=== PATIENT | female | born 1950 | race Caucasian/White ===

== ENCOUNTER 2019-08-05 14:40 | Outpatient (CLI) | payer OTHER, SELFPAY ==
--- NOTE | 2019-08-05 15:03 | ECHO_ITS ---
Patient Info Name: Marita Elkins Age: 69 years : 1950 Gender: Female Ht: 68 in Wt: 112 lbs BSA: 1.55 m2 HR: 62 bpm BP: 90 / 74 mmHg Heart Rhythm: Sinus Rhythm Technical Quality: Good Exam Date: 08/05/2019 3:10 PM Exam Location: [facility] Patient Status: Outpatient Admit Date: 08/05/2019 Staff Ordering Physician: Khadijah Mistry MD Clinical Secretary: Avery Estrada RDCS Attending Provider: Khadijah Mistry MD Referring Physician: Fidelia MOELLER; Exam Type: CA echo doppler color flow Study Info Indications I27.2 - Other secondary pulmonary hypertension Complete two-dimensional, color flow and Doppler transthoracic echocardiogram is performed. History/Risk Factors Pulmonary hypertension. Summary 1. Left ventricular chamber dimension is normal. 2. D- shape LV septum during systole suggests right ventricular pressure overload. 3. Left ventricular systolic function is normal, estimated at 55-60%. 4. The left ventricular diastolic function is grade I diastolic dysfunction. 5. E/e' 10 is mildly elevated. 6. Left atrial chamber dimension is mildly enlarged. 7. Right atrial chamber dimension is mildly enlarged. 8. There is mild aortic valve sclerosis. 9. There is trace aortic valve regurgitation. 10. There is moderate tricuspid valve regurgitation. 11. Severe pulmonary hypertension, estimated pulmonary arterial systolic pressure is 87 mmHg. 12. There is trace pulmonic regurgitation. 13. Small atheroma in posterior aortic root. Left Ventricle D- shape LV septum during systole suggests right ventricular pressure overload. E/e' 10 is mildly elevated. Left ventricular chamber dimension is normal. Left ventricular systolic function is normal, estimated at 55-60%. The left ventricular diastolic function is grade I diastolic dysfunction. Right Ventricle Right ventricular chamber dimension is normal. Right ventricular systolic function is normal. Left Atria Left atrial chamber dimension is mildly enlarged. Right Atria Right atrial chamber dimension is mildly enlarged. Atrial Septum Intact interatrial septum visualized by 2D and color flow imaging. Aortic Valve The aortic valve is trileaflet. There is mild aortic valve sclerosis. There is no aortic valve stenosis. There is trace aortic valve regurgitation. Pulmonic Valve There is trace pulmonic regurgitation. Mitral Valve There is no mitral valve stenosis. There is no mitral valve regurgitation. Tricuspid Valve There is moderate tricuspid valve regurgitation. Severe pulmonary hypertension, estimated pulmonary arterial systolic pressure is 87 mmHg. Pericardium/Pleural There is no pericardial effusion. Inferior Vena Cava Normal inferior vena cava with >50% collapse upon inspiration consistent with normal right atrial pressure, 5 mmHg. Aorta Small atheroma in posterior aortic root. The aortic root size at the sinus of Valsalva is normal. Left Ventricular Outflow Tract Name Value Normal LVOT 2D LVOT Diameter 1.9 cm LVOT Doppler LVOT Peak Gradient 3 mmHg LVOT Mean G
== END 2019-08-05 14:41 | disposition home or self-care (01) ==
PROVIDERS: Visit Provider Internal Medicine Critical Care Medicine
DX: I27.20 Pulmonary hypertension, unspecified (principal); I08.3 Combined rheumatic disorders of mitral, aortic and tricuspid valves
CPT/HCPCS: 93306

== ENCOUNTER 2019-11-20 10:13 | Outpatient (CLI) | payer OTHER, SELFPAY ==
--- NOTE | ~2019-11-20 | CT_ITS ---
EXAMINATION: CT chest wo con DATE: 11/20/2019 10:38 INDICATION: Interstitial pulmonary disease. TECHNIQUE: Computed tomography (CT) of the abdomen and pelvis was performed without intravenous contr ast. The dose-length product was 139.29 mGy-cm. Automated exposure control and iterative reconstructi on technique were employed. COMPARISON: CT dated 10/28/2018 FINDINGS: There is persistent unchanged extensive course interstitial fibrosis predominantly affectin g the lower lobes characterized by interlobular septal thickening, honeycombing and traction bronchie ctasis. There is left thoracic volume loss. There is mild emphysema. No significant change to scatter ed pulmonary nodules, largest in the right upper lobe measuring 8 mm. 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 No thoracic lymphadenopathy. No pneumothorax. Prominent pulmonary arteri es, suspicious for pulmonary arterial hypertension. Moderate thoracic spondylosis. No osteolytic or o steoblastic lesions. IMPRESSION: 1. Stable chronic interstitial fibrosis in a pattern consistent with usual interstitial pneumonitis. Left-sided volume loss is persistent. 2: Stable scattered pulmonary nodules, largest measuring 8 mm in the right upper lobe. Reviewed, dictated and finalized at location A. IMPRESSION: 1. Stable chronic interstitial fibrosis in a pattern consistent with usual inte rstitial pneumonitis. Left-sided volume loss is persistent. 2: Stable scattered pulmonary nodules, largest measuring 8 mm in the right uppe r lobe.
== END 2019-11-20 10:14 | disposition home or self-care (01) ==
PROVIDERS: Visit Provider Nurse Practitioner Family
DX: J84.9 Interstitial pulmonary disease, unspecified (principal); R91.8 Other nonspecific abnormal finding of lung field
CPT/HCPCS: 71250

== ENCOUNTER 2020-12-05 08:21 | Outpatient (CLI) | payer OTHER, SELFPAY ==
[2020-12-05 08:52] VITALS: PULSE 81; O2SAT 79
[2020-12-05 08:55] VITALS: PULSE 74; O2SAT 80
[2020-12-05 08:56] VITALS: PULSE 74; O2SAT 81
[2020-12-05 08:57] VITALS: PULSE 73; O2SAT 84
[2020-12-05 08:58] VITALS: PULSE 68; O2SAT 90
[2020-12-05 09:00] VITALS: PULSE 70; O2SAT 91
--- NOTE | 2020-12-05 09:44 | HOMEO2EVAL ---
Evaluation was performed at [facility] Home Oxygen Evaluation RC: Home Oxygen (O2) Evaluation Start: 12/05/20 09:34 Freq: Status: Active Protocol: RPE Activity Type Activity Date Activity User E-Sign Co-Sign Detail Recorded Client Recorded Date Recorded By Document 12/05/20 08:52 [email or web address] [email or web address] 12/05/20 09:39 KLA Document 12/05/20 08:54 [email or web address] [email or web address] 12/05/20 09:39 KLA Document 12/05/20 08:55 [email or web address] [email or web address] 12/05/20 09:39 KLA Document 12/05/20 08:56 [email or web address] [email or web address] 12/05/20 09:39 KLA Document 12/05/20 08:57 [email or web address] [email or web address] 12/05/20 09:44 KLA Document 12/05/20 08:58 [email or web address] [email or web address] 12/05/20 09:44 KLA Document 12/05/20 09:00 KLA [email or web address] 12/05/20 09:44 KLA 12/05/20 12/05/20 12/05/20 08:52 08:54 08:55 Home O2 Evaluation Test Phase Resting Resting Resting Oxygen Delivery Room Air Nasal Cannula Oxygen Flow Rate (L/min) 1 Pulse Oximetry (90-100 %) 79 L 80 L Pulse Rate (60-100 beats/min) 81 74 Activity Tolerance Ambulation Distance (feet) Home Oxygen Evaluation Comments Patient unable to tolerate pulse-dose setting of 5, placed on continuous flow Treatment Charges O2 Evaluation - Outpatient 12/05/20 12/05/20 12/05/20 08:56 08:57 08:58 Home O2 Evaluation Test Phase Resting Resting Resting Oxygen Delivery Nasal Cannula Nasal Cannula Nasal Cannula Oxygen Flow Rate (L/min) 2 3 4 Pulse Oximetry (90-100 %) 81 L 84 L 90 Pulse Rate (60-100 beats/min) 74 73 68 Activity Tolerance Ambulation Distance (feet) Home Oxygen Evaluation Comments Treatment Charges 12/05/20 09:00 Home O2 Evaluation Test Phase Exercise Oxygen Delivery Nasal Cannula Oxygen Flow Rate (L/min) 4 Pulse Oximetry (90-100 %) 91 Pulse Rate (60-100 beats/min) 70 Activity Tolerance Fair Ambulation Distance (feet) 50 Home Oxygen Evaluation Comments Patient requires 4 liters per minute continuous flow at rest and with activity. Treatment Charges
== END 2020-12-05 08:22 | disposition home or self-care (01) ==
PROVIDERS: Visit Provider Internal Medicine Pulmonary Disease
DX: J84.10 Pulmonary fibrosis, unspecified (principal)
CPT/HCPCS: 94618

== ENCOUNTER 2021-01-07 17:29 | Emergency (ER) | payer OTHER, SELFPAY ==
--- NOTE | ~2021-01-07 | XR_ITS ---
EXAMINATION: XR chest 2V DATE: 01/07/2021 18:24 INDICATION: This of breath and hypoxia TECHNIQUE: frontal and lateral views of the chest were obtained. COMPARISON: Chest radiograph dated 08/20/[address] dated 11/20/2019 FINDINGS: Unchanged hyperexpansion of the right lung and relative volume loss in the left lung with leftward sh ift of the heart and mediastinum. Again seen is groundglass opacity and superimposed coarse reticular pattern throughout the left lung and in the right lower lung zone which on prior CT demonstrated irr egular septal line thickening and honeycombing most consistent with usual interstitial pneumonia (UIP ) pattern chronic interstitial lung disease. Difficult to exclude superimposed pulmonary edema or pne umonia although there has been negligible relatively uniform progression since 2017 with no regions o f more focal progressive lung disease to more specifically suggest this. No pleural effusion or pneum othorax. The cardiac silhouette is obscured but does not appear significantly enlarged. There is enla rgement of the central pulmonary arteries consistent with pulmonary arterial hypertension. IMPRESSION: 1. Relatively stable appearance of left-sided predominant diffuse chronic interstitial fibrosis with UIP pattern. 2. Enlargement of the central pulmonary arteries consistent with pulmonary arterial hypertension. Reviewed, dictated and finalized at location A. IMPRESSION: 1. Relatively stable appearance of left-sided predominant diffuse chronic inter stitial fibrosis with UIP pattern. 2. Enlargement of the central pulmonary arteries consistent with pulmonary gwendolyn rial hypertension.
[2021-01-07 17:31] VITALS: BP 99/60; PULSE 123; RESP 25; TEMP 36; O2SAT 80
--- NOTE | 2021-01-07 17:38 | ECG_ITS ---
Measurements Intervals Rindge Rate: 102 P: 73 RI: 124 QRS: 144 QRSD: 122 T: 81 QT: 371 QTc: 483 Interpretive Statements SINUS TACHYCARDIA RIGHT AXIS DEVIATION POSSIBLE LEFT ATRIAL ENLARGEMENT RIGHT BUNDLE BRANCH BLOCK BASELINE ARTIFACT- I, III, V3, V6 ABNORMAL ECG Electronically Signed On 01-08-2021 15:15:03 CDT by Noe Coyle D.O.
[2021-01-07 17:52] VITALS: BP 100/74; PULSE 96; RESP 19; O2SAT 100
[2021-01-07 17:53] VITALS: O2SAT 98
[2021-01-07 17:55] LABS: Basophils Absolute Auto 0.1 K/mm3 (0.0-0.1); Basophils Percent Auto 0.7 % (0.2-1.2); Eosinophils Absolute Auto 0.3 K/mm3 (0-0.3); Eosinophils Percent Auto 3.4 % (0-4.4); Hematocrit 43.1 % (37.0-47.0); Immature Granulocyte Absolute 0.03 K/mm3 (0.00-0.031); Immature Granulocyte Percent A 0.3 % (0-0.5); Lymphocytes Absolute Auto 2.77 K/mm3 (0.9-3.2); Lymphocytes Percent Auto 27.6 % (18.3-44.2); Mean Corpuscular HGB Conc 30.2 g/dl (32-36); Mean Corpuscular Hemoglobin 27.4 pg (26-34); Mean Corpuscular Volume 90.7 fl (80-100); Mean Platelet Volume 11.2 fl (7.4-10.4); Monocytes Absolute Auto 0.8 K/mm3 (0.1-0.6); Monocytes Percent Auto 7.9 % (2.6-8.5); Neutrophils Percent Auto 60.1 % (45.5-73.1); Platelet Count Result 167 k/mm3 (150-375); Red Blood Count 4.75 M/mm3 (4.2-5.4); Red Cell Distribution Width 15.9 % (11.5-14.5)
[2021-01-07 18:06] LABS: Anion Gap 11 mmol/L (8-16); Blood Urea Nitrogen 17 mg/dL (7-17); Calcium 8.8 mg/dL (8.4-10.2); Carbon Dioxide 21 mmol/L (22-30); Chloride 101 mmol/L (98-107); Estimated CRCL calculation 69 ml/min; Estimated Glomerular Filt Rate > 60; Glucose 136 mg/dL (65-110); Potassium 4.5 mmol/L (3.4-5.0); Sodium 133 mmol/L (137-145)
[2021-01-07 18:48] VITALS: BP 101/71; PULSE 77; RESP 16; O2SAT 98
--- NOTE | 2021-01-07 19:09 | ED.SOB ---
HPI - SOB/Dyspnea General Chief Complaint: Shortness of Breath/Dyspnea Stated Complaint: SOB Time Seen by Provider: 01/07/21 17:46 Source: patient and family Mode of arrival: ambulatory Limitations: no limitations History of Present Illness HPI Narrative: 70-year-old female Patient has pulmonary fibrosis and is oxygen dependent and on 6 L by nasal cannula at home She has been feeling increasingly weak and tired and her breathing has been a little worse for several days so today he decided to venture out to an urgent care to have a Covid test done, even though she is vaccinated Ultimately she waited in urgent care for 2-1/2 hours and never did get tested, but while she was there she was using a triggered Oxymizer machine instead of just her nasal cannula and she became progressively short of breath and had to come to the hospital Here she has been put back on 6 L of oxygen per her usual and her sats are normal and she feels much much better Related Data Home Medications Medication Instructions Recorded Confirmed aspirin 81 mg tablet,delayed 81 mg PO DAILY 05/12/19 11/22/20 release citalopram 20 mg tablet 20 mg PO DAILY 05/12/19 11/22/20 levothyroxine 25 mcg tablet 25 mcg PO DAILY 05/12/19 11/22/20 lisinopril 20 mg tablet 20 mg PO DAILY 05/12/19 11/22/20 omega-3 fatty acids [Fish Oil PO 05/12/19 11/22/20 Concentrate] ropinirole 0.25 mg tablet 0.25 mg PO DAILY tablet 05/12/19 11/22/20 alendronate PO 01/07/21 Allergies Allergy/AdvReac Type Severity Reaction Status Date / Time No Known Allergies Allergy Verified 01/07/21 17:52 Review of Systems Review of Systems: All systems reviewed & are unremarkable except as noted in HPI and below Constitutional: Constitutional: Reports no additional constitutional complaints, Denies chills, Reports fatigue, Denies fever(s), Denies headache(s) and Reports weakness Eyes: Eyes: Reports no additional eye complaints and Denies change in vision ENT: Denies headache(s) and Denies sore throat Cardiovascular: Cardiovascular: Denies chest pain and Denies dyspnea Respiratory: Respiratory: Reports cough and Reports dyspnea Gastrointestinal: Gastrointestinal: Denies abdominal pain, Denies diarrhea and Denies vomiting Genitourinary: Genitourinary: Denies urinary frequency and Denies dysuria Musculoskeletal: Musculoskeletal: Reports myalgias, Denies deformity, Denies arthralgias, Denies joint swelling and Denies numbness Integumentary/Breasts: Skin/Breast: Denies rash and Denies wounds Neurologic: Denies headache(s), Denies focal weakness and Denies numbness Psychiatric: Psychiatric: Reports no additional psychiatric complaints Endocrine: Endocrine: Reports no additional endocrine complaints Hematologic/Lymphatic: Hematologic/Lymphatic: Reports no additional hematologic/lymphatic complaints Allergic/Immunologic: Allergic/Immunologic: Reports no additional allergic/immunologic complaints [facility] Past Medical History Medical History (Updated 01/07/21 @ 20:37 by Gregg Dennis MD) COPD (chronic obstructive pulmonary disease) Generalized osteoarthritis of multiple sites Heart disease HTN (hypertension) Lupus (systemic lupus erythematosus) (~2015) Pulmonary fibrosis (~2016) Thyroid disease Vitamin D deficiency Surgical History Surgical History History of lung biopsy Family History Family History Mother Diabetes mellitus, Onset Age: 85 Father Family history of cardiovascular disease, Onset Age: 87 Social History Social History Smoking status: Never smoker Smoking end date: 06/01/99 Alcohol intake: never Exam Const: General: cooperative, no acute distress and ill appearing Nutritional Appearance: thin Orientation/consciousness: patient oriented x3 (alert) Other: Appears frail and chronically
[2021-01-07 20:09] VITALS: BP 107/64; PULSE 65; RESP 25; O2SAT 100
[2021-01-07 20:39] VITALS: BP 109/72; PULSE 70; RESP 32; O2SAT 100
== END 2021-01-07 20:40 | disposition home or self-care (01) ==
PROVIDERS: Emergency Medicine; Emergency Provider Emergency Medicine
DX: J84.10 Pulmonary fibrosis, unspecified (principal); Z99.81 Dependence on supplemental oxygen; J44.9 Chronic obstructive pulmonary disease, unspecified; M19.90 Unspecified osteoarthritis, unspecified site; I11.9 Hypertensive heart disease without heart failure; M32.9 Systemic lupus erythematosus, unspecified; E07.9 Disorder of thyroid, unspecified; E55.9 Vitamin D deficiency, unspecified
CPT/HCPCS: 36415; 71046; 80048; 85025; 93005; 99284